=== PATIENT | male | born 1950 | race Caucasian/White ===

== ENCOUNTER 2020-02-28 23:50 | Observation (INO) | payer MEDICARE ==
[2020-02-29] MEDS ORDERED: SODIUM CHLORIDE 0.9% 1,000 ML IV ONE (00:14)
[2020-02-29] MEDS ORDERED: ONDANSETRON 4 MG/2 ML VIAL IVP STA (00:14)
[2020-02-29] MEDS ORDERED: MECLIZINE 12.5 MG TAB PO STA (00:14)
--- NOTE | 2020-02-29 00:34 | ED ---
General Adult HPI - General Chief complaint: Recheck/Abnormal Lab/Rx Stated complaint: High Blood Pressure Time Seen by Provider: 02/28/20 23:58 Source: patient, EMS Mode of arrival: EMS Limitations: no limitations - History of Present Illness Initial comments: Oleg is a 69-year-old male who presents the emergency today via private vehicle for evaluation of dizziness. Patient reports he was in his usual state of health throughout the day today. He denies any chest pain palpitations or headaches. Patient reports and he went to bed this evening upon laying down he had profound vertigo. This seemed to be worse when laying back. Didn't seem to be provoked by head turning, sitting up or standing. He is never experienced anything like this in the past. He denies any headache or vision changes. He denies any difficulty in speech swallowing. He denies any weakness in the extremities. - Related Data Allergies Allergy/AdvReac Type Severity Reaction Status Date / Time No Known Allergies Allergy Verified 02/28/20 23:57 Review of Systems ROS Statement: Those systems with pertinent positive or pertinent negative responses have been documented in the HPI. ROS Other: All systems not noted in ROS Statement are negative. Past Medical History Past Medical History: Hypertension History of Any Multi-Drug Resistant Organisms: None Reported Past Surgical History: Prostate Surgery Past Psychological History: No Psychological Hx Reported Smoking Status: Never smoker Past Alcohol Use History: None Reported Past Drug Use History: None Reported General Exam - General Exam Comments Initial Comments: Physical Exam GENERAL: Patient is well-developed and well-nourished. Patient is nontoxic and well- hydrated and is in no distress. HENT: Normocephalic, Atraumatic. EYES: PERRL, EOMI PULMONARY: Unlabored respirations. No audible rales rhonchi or wheezing was noted. CARDIOVASCULAR: There is a regular rate and rhythm without any murmurs gallops or rubs. ABDOMEN: Soft and nontender with normal bowel sounds. SKIN: Skin is clear with no lesions or rashes and otherwise unremarkable. : Deferred NEUROLOGIC: Patient is alert and oriented x3. Cranial nerves II through XII are grossly intact Normal finger-nose Moving all extremities spontaneously Horizontal nystagmus noted upon laying backwards, not provoked by turning the head left or right MUSCULOSKELETAL: Normal extremities with adequate strength and full range of motion. No lower extremity swelling or edema. No calf tenderness. PSYCHIATRIC: Normal psychiatric evaluation. Limitations: no limitations Course Vital Signs 02/28/20 02/29/20 23:52 01:00 Temperature 97.6 F Pulse Rate 75 75 Respiratory 18 18 Rate Blood Pressure 167/97 135/84 O2 Sat by Pulse 97 98 Oximetry EKG Findings - EKG Comments: EKG Findings:: EKG was obtained due to complaint of dizziness and an elderly gen tleman, EKG was obtained 2358, rate 74 rhythm is sinus there is a normal axis, there are normal intervals, W[place] 150, QRS 90, QTC is 435 there are no acute ST elevation or depressions no evidence of acute ischemia, infarction or arrhythmia. Medical Decision Making - Medical Decision Making Patient was seen and evaluated, history is obtained from the patient Physical exam concerning for a reproducible likely peripheral vertigo however given the patient's advanced age and hypertension labs and imaging will be obtained Patient was treated with meclizine and Zofran (Reevaluation patient reports he vomited after taking the meclizine not certain if he kept any of it down. He has persistent vertigo Head CT was reviewed and was unremarkable IV Valium was ordered for persistent vertigo Labs resulted with mild hypokalemia no other significant abnormalities Patient was reevaluated was found to be resting comfortably after IV Valium he reports resolution of his dizziness and nausea however given his advanced age I do feel the patient would benefit from evaluation by neurology. Patient is agreeable to plan for observation with a consult to neurology. - Lab Data Result diagrams: 02/29/20 01:07 02/29/20 01:07 Lab Results 02/29/20 02/29/20 Range/Units 01:07 01:07 WBC 5.1 (3.8-10.6) k/uL RBC 3.74 L (4.30-5.90) m/uL Hgb 11.5 L (13.0-17.5) gm/dL Hct 35.1 L (39.0-53.0) % MCV 93.8 (80.0-100.0) fL MCH 30.8 (25.0-35.0) pg MCHC 32.8 (31.0-37.0) g/dL RDW 12.5 (11.5-15.5) % Plt Count 155 (150-450) k/uL Neutrophils % 54 % Lymphocytes % 28 % Monocytes % 8 % Eosinophils % 6 % Basophils % 1 % Neutrophils # 2.8 (1.3-7.7) k/uL Lymphocytes # 1.4 (1.0-4.8) k/uL Monocytes # 0.4 (0-1.0) k/uL Eosinophils # 0.3 (0-0.7) k/uL Basophils # 0.0 (0-0.2) k/uL Sodium 135 L (137-145) mmol/L Potassium 3.3 L (3.5-5.1) mmol/L Chloride 108 H (98-107) mmol/L Carbon Dioxide 21 L (22-30) mmol/L Anion Gap 6 mmol/L BUN 16 (9-20) mg/dL Creatinine 0.66 (0.66-1.25) mg/dL Est GFR (CKD-EPI)AfAm >90 (>60 ml/min/1.73 sqM) Est GFR (CKD-EPI)NonAf >90 (>60 ml/min/1.73 sqM) Glucose 150 H (74-99) mg/dL Calcium 7.5 L (8.4-10.2) mg/dL Magnesium 1.6 (1.6-2.3) mg/dL Total Bilirubin 0.2 (0.2-1.3) mg/dL AST 18 (17-59) U/L ALT 10 (4-49) U/L Alkaline Phosphatase 59 (38-126) U/L Total Protein 5.5 L (6.3-8.2) g/dL Albumin 3.2 L (3.5-5.0) g/dL Disposition Clinical Impression: Vertigo, Hypertension, Hypokalemia Disposition: ADMITTED IP TO THIS HOSP Condition: Stable Referrals: Yoahn Sanderson MD [Primary Care Provider] - 1-2 days
--- NOTE | 2020-02-29 00:50 | CT ---
EXAMINATION TYPE: CT brain wo con DATE OF EXAM: 02/29/2020 COMPARISON: None HISTORY: dizziness , vomiting CT DLP: 1173.4 mGycm Automated exposure control for dose reduction was used. Images obtained of the brain with no contrast. There is mild cerebral atrophy. There is no mass effect nor midline shift. There is no sign of intrac ranial hemorrhage. The calvarium is intact. IMPRESSION: Mild atrophy. No acute intracranial abnormality.
[2020-02-29 01:21] LABS: Basophils % (A) 1 %; Eosinophils # (A) 0.3 k/uL (0-0.7); Eosinophils % (A) 6 %; HCT 35.1 % (39.0-53.0); HGB 11.5 gm/dL (13.0-17.5); Lymphocytes # (A) 1.4 k/uL (1.0-4.8); Lymphocytes % (A) 28 %; MCH 30.8 pg (25.0-35.0); MCHC 32.8 g/dL (31.0-37.0); MCV 93.8 fL (80.0-100.0); Mean Platelet Volume 8.4; Monocytes # (A) 0.4 k/uL (0-1.0); Monocytes % (A) 8 %; Neutrophils # (A) 2.8 k/uL (1.3-7.7); Neutrophils % (A) 54 %; Platelet Count 155 k/uL (150-450); RBC 3.74 m/uL (4.30-5.90); RDW 12.5 % (11.5-15.5); WBC 5.1 k/uL (3.8-10.6)
[2020-02-29 01:32] LABS: ALT 10 U/L (4-49); AST 18 U/L (17-59); African American GFR (CKD) >90 (>60 ml/min/1.73 sqM); Albumin 3.2 g/dL (3.5-5.0); Alkaline Phosphatase 59 U/L (38-126); Anion Gap 6 mmol/L; Blood Urea Nitrogen 16 mg/dL (9-20); Calcium 7.5 mg/dL (8.4-10.2); Carbon Dioxide 21 mmol/L (22-30); Chloride 108 mmol/L (98-107); Glucose 150 mg/dL (74-99); Magnesium 1.6 mg/dL (1.6-2.3); Non-African American GFR(CKD) >90 (>60 ml/min/1.73 sqM); Potassium 3.3 mmol/L (3.5-5.1); Sodium 135 mmol/L (137-145); Total Bilirubin 0.2 mg/dL (0.2-1.3); Total Protein 5.5 g/dL (6.3-8.2)
[2020-02-29] MEDS ORDERED: Potassium Replacement Protocol 1 EACH MISC MISCELLANE PRN (01:42)
[2020-02-29] MEDS ORDERED: DIAZEPAM 5 MG/ML 2 ML INJ IVP STA (01:57)
[2020-02-29] MEDS: POTASSIUM CHLORIDE ER 20 MEQ TAB.ER PO SCH ×2 (02:00→03:09)
[2020-02-29] MEDS ORDERED: NALOXONE 0.4 MG/ML 1 ML VIAL IV PRN (02:37)
[2020-02-29] MEDS ORDERED: 0.9% NACL WITH KCL 20 MEQ/L 1,000 ML IV SCH (02:45)
[2020-02-29 04:47] VITALS: BP 143/96
[2020-02-29 06:11] LABS: African American GFR (CKD) >90 (>60 ml/min/1.73 sqM); Anion Gap 5 mmol/L; Blood Urea Nitrogen 14 mg/dL (9-20); Calcium 8.9 mg/dL (8.4-10.2); Carbon Dioxide 27 mmol/L (22-30); Chloride 108 mmol/L (98-107); Glucose 114 mg/dL (74-99); Non-African American GFR(CKD) >90 (>60 ml/min/1.73 sqM); Potassium 4.7 mmol/L (3.5-5.1); Sodium 140 mmol/L (137-145)
[2020-02-29 06:27] LABS: Glucose,Whole Blood 112 mg/dL (75-99)
[2020-02-29 09:34] VITALS: PULSE 92; RESP 14; TEMP 97.9
--- NOTE | 2020-02-29 09:49 | P.CNNES ---
History of Present Illness Consult date: 02/29/20 Requesting physician: Marina Cormier Reason for Consult: persistent dizziness History of Present Illness: This is a 69-year-old right-handed gentleman medical history of hypertension, prostate cancer s/p resection (2006) that presented to the emergency department on evening of 02/28/2020 regarding dizziness. Patient reports date he was in his usual health throughout the day yesterday then went to bed yesterday at 10pm and upon laying down he was having dizziness. He felt the room was spining around him. The dizziness was with rest and resting. He did feel nausea. Denied diplopia, rining in the ears, hearing loss, focal weakness, slurred speech, vision change. He did not notice that he was swaying one side to another. He denied fever, cough or chills. Denies trauma to head or neck. In the ED he had an episode of vomitting and received meclizine and feels his dizziness is resolved. He denies history of TIA or stroke. Denied family history of stroke. Workup in the ED consisted of CT of the head which was reported as mild atrophy. Otherwise no acute intracranial abnormality. EKG was normal sinus rhythm, ventricle rate of 74. His initial blood pressure was 167/97. Heart rate was 75 bpm. initial temperature was 97.6 F. Of note the patient states that he has chronic headaches. He had he gives a poor description of the headache he states that it's in the back of the head or throughout his whole head. He denies any photophobia, phonophobia. Denies any nausea any vomiting. Could not characterize his headache. His headache was 3/10 if he gets it. Last headache was about 4 weeks ago. He is on a chronic dose of codeine twice a day and been on it for years. Review of Systems Review of system: The 12 point system was reviewed and apparent positive and negative per HPI. Past Medical History Past Medical History: Hypertension History of Any Multi-Drug Resistant Organisms: None Reported Past Surgical History: Prostate Surgery Past Psychological History: No Psychological Hx Reported Smoking Status: Never smoker Past Alcohol Use History: None Reported Past Drug Use History: None Reported Medications and Allergies Home Medications Medication Instructions Recorded Confirmed Type Aspirin/Acetaminophen/Caffeine 1 tab PO HS 02/29/20 02/29/20 History [Excedrin Extra Strength Caplet] Azelaic Acid 1 applic TOPICAL BID 02/29/20 02/29/20 History Calcium Carbonate [Tums] 500 - 1,000 mg PO TID PRN 02/29/20 02/29/20 History Famotidine 20 mg PO BID 02/29/20 02/29/20 History Fexofenadine HCl [Karina Allergy] 180 mg PO DAILY 02/29/20 02/29/20 History Ketoconazole 2% Cream [Nizoral 2%] 1 applic TOPICAL DAILY PRN 02/29/20 02/29/20 History Losartan [Cozaar] 50 mg PO DAILY 02/29/20 02/29/20 History Lycopene 10 mg PO DAILY 02/29/20 02/29/20 History Meclizine [Antivert] 12.5 mg PO Q12HR PRN #15 tablet 02/29/20 Rx Multivit-Min/FA/Lycopen/Lutein 1 tab PO DAILY 02/29/20 02/29/20 History [Centrum Silver Tablet] Nystatin/Triamcin 1 applic TOPICAL BID PRN 02/29/20 02/29/20 History [Nystatin-Triamcinolone Cream] Oxymetazoline HCl [Rhofade] 1 applic TOPICAL DAILY PRN 02/29/20 02/29/20 History Selenium 200 mcg PO DAILY 02/29/20 02/29/20 History Sennosides [Senna] 34.4 mg PO HS 02/29/20 02/29/20 History metroNIDAZOLE 1% GEL [Metrogel 1%] 1 applic TOPICAL HS 02/29/20 02/29/20 History Allergies Allergy/AdvReac Type Severity Reaction Status Date / Time No Known Allergies Allergy Verified 02/29/20 08:58 Physical Examination - Vital Signs Vital Signs: Vital Signs Temp Pulse Pulse Resp BP BP Pulse Ox 02/29/20 04:00 97.6 F 80 18 143/96 97 02/29/20 03:00 70 18 115/82 97 02/29/20 02:00 73 18 143/85 96 02/29/20 01:00 75 18 135/84 98 02/28/20 23:52 97.6 F 75 18 167/97 97 Intake and Output 02/28/20 02/29/20 02/29/20 22:59 06:59 14:59 Intake Total 150 Balance 150 Intake: Intake, IV Titration 150 Amount 0.9% NaCl with KCl 20 Meq 150 /l 1,000 ml @ 50 mls/hr IV .Q20H [facility] Rx#: [id number] Oral 0 Other: Voiding Method Toilet # Voids 4 Weight 68.946 kg GENERAL: The patient is lying in bed and is not in acute distress. CHEST: The heart rate is regular rate rhythm. No murmurs to auscultation. No carotid bruit bilaterally. LUNG: Clear to auscultation bilaterally no wheezing noted throughout. Not labored breathing. ABDOMEN/GI: Bowel sounds present in all 4 quadrants. No tenderness to palpation throughout. NEUROLOGICAL: Higher mental function: The patient is awake, alert, oriented to self, place and time. Patient is following commands. No aphasia and no neglect. Cranial nerves: The pupils are round, equal (3mm bilaterally) and reactive to light and accommodation. Visual renteria are full to confrontation throughout. Extraocular movement is intact no nystagmus is noted. Facial sensation is normal to touch throughout. The facial strength is normal throughout. Hearing is normal bilaterally to hand rub. Tongue is midline and moved [id number] without any difficulty. No dysarthria is noted. Shoulder shrug is normal b ilaterally. Motor: Gait is normal and he was not swaying towards one side or other. The strength is 5 over 5 throughout. Normal tone and bulk. Romberg sign was negative. Cerebellum: Normal finger to nose and heel to chin bilaterally. Sensation: Sensation is normal to touch throughout. Reflexes (right/left): 2+ throughout. Plantars are downgoing bilaterally. Results - Laboratory Findings CBC and BMP: 02/29/20 01:07 02/29/20 05:53 Abnormal Lab Findings: Abnormal Labs 02/29/20 02/29/20 02/29/20 01:07 01:07 05:53 RBC 3.74 L Hgb 11.5 L Hct 35.1 L Sodium 135 L Potassium 3.3 L Chloride 108 H 108 H Carbon Dioxide 21 L Glucose 150 H 114 H POC Glucose (mg/dL) Calcium 7.5 L Total Protein 5.5 L Albumin 3.2 L 02/29/20 06:26 RBC Hgb Hct Sodium Potassium Chloride Carbon Dioxide Glucose POC Glucose (mg/dL) 112 H Calcium Total Protein Albumin - Diagnostic Findings Additional findings: AST 18 ALT of 20 his initial calcium was 7.5 but repeated was 8.9. Initial sodium was 135 but repeated was 140. Initial potassium was 3.3 but he received potassium and is the repeated to potassium was 4.7. Assessment and Plan Assessment: This is a 69-year-old right-haneded gentleman with a history of hypertension, and prostate cancer s/p resection (2006) who presented to the ED on 02/28/2024 for dizziness. He felt room is spining around him and was with rest and laying. He had nausea and vomitting. Otherwise no other neurological complaints. Initial CT of the head that showed mild atrophy otherwise unremarkable. In ED he received meclizine and he feels his dizziness is resolved. Neurological exam is normal. Dizziness of unspecified etiology that resolved (possibly labyrinthitis) Chronic headache History of HTN Plan: Regarding the patient's dizziness which is resolved. There is a no neurological deficit. No further imaging it is warranted at this time. Meclizine is ordered, 12.5 mg, diazepam 5 mg once, Zofran 4 mg once. Can consider low dose of meclizine upon discharge. Patient was not notified if he has any further dizziness or any neurological symptoms to come to the ED immediately. Chronic headache: Patient is on a chronic dose of codeine twice a day and he been on it for years he followed up with a family physician. And and he he gives poor description of his headache. His headaches don't seem migrainous or tension. Patient was notified that the codeine can cause rebound headache and it's recommended that he follows up with that neurology as an outpatient regarding the management of headache. He hasn't had any headaches E according to him in the last 4 weeks. Regarding his history of hypertension we'll defer to the primary team. Thank you for the consultation Matthew Logan MD Neurohospitalist Time with Patient: Greater than 30
[2020-02-29 12:09] LABS: Glucose,Whole Blood 93 mg/dL (75-99)
--- NOTE | 2020-02-29 13:56 | P.HPIM ---
History of Present Illness H&P Date: 02/29/20 Chief Complaint: Dizziness Patient is a 69-year-old male with a known history of hypertension, tonic headaches, prostate cancer status post resection in 2017 presents to ER with complaints of dizziness. Patient says that he went to bed yesterday evening and laid down. Upon laying down he had profound O2 and felt like the room spinning. Seems to be worse when lying back. He never experienced anything like this in the past. Denied any worsening headache or visual changes. No complaints of chest pain or shortness of breath. No palpitations. Next and denied any wea kness or numbness or tingling sensation in the feet and hands. Denied any slurred speech. Denied any complaints of cough is from production. No fever no chills. No recent illnesses. Denied ear pain. Laboratory data showed sodium 133, potassium 3.3 No leukocytosis. Hemoglobin is 11.2 CT head showed mild atrophy. No intracranial abnormality noted. Blood pressure was 167/97 with heart rate 75 on admission. Patient was afebrile. Review of Systems Constitutional: Patient denies any fever or chills . No generalized weakness or weight loss. Abdomen: Patient denied nausea vomiting and diarrhea and abdominal pain. Cardiovascular: Patient denies any chest pain or short of breath no palpitations. Respiratory: patient denied any cough is from production. No shortness of breath Neurologic: Patient denied any numbness or tingling. Chronic headache. Dizziness and room spinning Musculoskeletal: Patient denies any complaints of joint swelling or deformity. Skin: Negative Psychiatric: Negative Endocrine: No heat or cold intolerance. No recent weight gain. Genitourinary: No dysuria or hematuria. All other 14 point ROS negative except the above Past Medical History Past Medical History: Hypertension History of Any Multi-Drug Resistant Organisms: None Reported Past Surgical History: Prostate Surgery Past Psychological History: No Psychological Hx Reported Smoking Status: Never smoker Past Alcohol Use History: None Reported Past Drug Use History: None Reported Medications and Allergies Home Medications Medication Instructions Recorded Confirmed Type Aspirin/Acetaminophen/Caffeine 1 tab PO HS 02/29/20 02/29/20 History [Excedrin Extra Strength Caplet] Azelaic Acid 1 applic TOPICAL BID 02/29/20 02/29/20 History Calcium Carbonate [Tums] 500 - 1,000 mg PO TID PRN 02/29/20 02/29/20 History Famotidine 20 mg PO BID 02/29/20 02/29/20 History Fexofenadine HCl [Karina Allergy] 180 mg PO DAILY 02/29/20 02/29/20 History Ketoconazole 2% Cream [Nizoral 2%] 1 applic TOPICAL DAILY PRN 02/29/20 02/29/20 History Losartan [Cozaar] 50 mg PO DAILY 02/29/20 02/29/20 History Lycopene 10 mg PO DAILY 02/29/20 02/29/20 History Meclizine [Antivert] 12.5 mg PO Q12HR PRN #15 tablet 02/29/20 Rx Multivit-Min/FA/Lycopen/Lutein 1 tab PO DAILY 02/29/20 02/29/20 History [Centrum Silver Tablet] Nystatin/Triamcin 1 applic TOPICAL BID PRN 02/29/20 02/29/20 History [Nystatin-Triamcinolone Cream] Oxymetazoline HCl [Rhofade] 1 applic TOPICAL DAILY PRN 02/29/20 02/29/20 History Selenium 200 mcg PO DAILY 02/29/20 02/29/20 History Sennosides [Senna] 34.4 mg PO HS 02/29/20 02/29/20 History metroNIDAZOLE 1% GEL [Metrogel 1%] 1 applic TOPICAL HS 02/29/20 02/29/20 History Allergies Allergy/AdvReac Type Severity Reaction Status Date / Time No Known Allergies Allergy Verified 02/29/20 08:58 Physical Exam Vitals: Vital Signs Temp Pulse Pulse Resp BP BP Pulse Ox 02/29/20 08:00 97.9 F 92 14 97 02/29/20 04:00 97.6 F 80 18 143/96 97 02/29/20 03:00 70 18 115/82 97 02/29/20 02:00 73 18 143/85 96 02/29/20 01:00 75 18 135/84 98 02/28/20 23:52 97.6 F 75 18 167/97 97 Intake and Output 02/28/20 02/29/20 02/29/20 22:59 06:59 14:59 Intake Total 150 Balance 150 Intake: Intake, IV Titration 150 Amount 0.9% NaCl with KCl 20 Meq 150 /l 1,000 ml @ 50 mls/hr IV .Q20H [facility] Rx#: [id number] Oral 0 Other: Voiding Method Toilet # Voids 4 Weight 68.946 kg PHYSICAL EXAMINATION: Patient is lying in the bed comfortably, no acute distress, awake alert and oriented.. HEENT: Normocephalic. Neck is supple. Pupils reactive. Nostrils clear. Oral cavity is moist. Ears reveal no drainage. Neck reveals no JVD, carotid bruits, or thyromegaly. CHEST EXAMINATION: Trachea is central. Symmetrical expansion. Lung renteria clear to auscultation and percussion. CARDIAC: Normal S1, S2 with no gallops. No murmurs ABDOMEN: Soft. Bowel sounds normal. No organomegaly. No abdominal bruits. Extremities: reveal no edema. No clubbing or cyanosis Neurologically awake, alert, oriented x3 with well-coordinated movements. No focal deficits noted Skin: No rash or skin lesions. Psychiatric: Coperative. Nonsuicidal Musculoskeletal: No joint swelling or deformity. Normal range of motion. Results CBC & Chem 7: 02/29/20 01:07 02/29/20 05:53 Labs: Abnormal Lab Results - Last 24 Hours (Table) 02/29/20 02/29/20 02/29/20 Range/Units 01:07 01:07 05:53 RBC 3.74 L (4.30-5.90) m/uL Hgb 11.5 L (13.0-17.5) gm/dL Hct 35.1 L (39.0-53.0) % Sodium 135 L (137-145) mmol/L Potassium 3.3 L (3.5-5.1) mmol/L Chloride 108 H 108 H (98-107) mmol/L Carbon Dioxide 21 L (22-30) mmol/L Glucose 150 H 114 H (74-99) mg/dL POC Glucose (mg/dL) (75-99) mg/dL Calcium 7.5 L (8.4-10.2) mg/dL Total Protein 5.5 L (6.3-8.2) g/dL Albumin 3.2 L (3.5-5.0) g/dL 02/29/20 Range/Units 06:26 RBC (4.30-5.90) m/uL Hgb (13.0-17.5) gm/dL Hct (39.0-53.0) % Sodium (137-145) mmol/L Potassium (3.5-5.1) mmol/L Chloride (98-107) mmol/L Carbon Dioxide (22-30) mmol/L Glucose (74-99) mg/dL POC Glucose (mg/dL) 112 H (75-99) mg/dL Calcium (8.4-10.2) mg/dL Total Protein (6.3-8.2) g/dL Albumin (3.5-5.0) g/dL Thrombosis Risk Factor Assmnt - DVT/VTE Prophylaxis DVT/VTE Prophylaxis: Pharmacologic Prophylaxis ordered - Choose All That Apply Any of the Below Risk Factors Present?: No Other Risk Factors: Yes Each Risk Factor Represents 2 Points: Age 61-74 years Other congenital or acquired thrombophilia - If yes, enter type in comment: No Thrombosis Risk Factor Assessment Total Risk Factor Score: 2 Thrombosis Risk Factor Assessment Level: Low Risk Assessment and Plan Assessment: TDizziness with feeling of room spinning likely due to positional vertigo and possible labyrinthitis. Chronic headaches. No new changes. Denied any history of migraine headache Hypertension. Controlled. Hypovolemic hyponatremia DVT prophylaxis Plan: Patient will be continued on IV hydration and replace electrolyte. Patient will be started on meclizine 12.5 mg 3 times a day when necessary for dizziness and vertigo. Patient does take Fioricet and Fiorinal for headaches at home. Neurology was consulted. Further recommendations based on the clinical course. Otherwise patient is improving symptomatically. Time with Patient: Greater than 30
--- NOTE | 2020-02-29 13:59 | P.DS ---
Providers Date of admission: 02/29/20 02:37 Expected date of discharge: 02/29/20 Attending physician: Vinay Cantrell Consults: 02/29/20 02:38 Consult Physician Urgent Consulting Provider: Matthew Logan Consult Reason/Comments: dizziness, normal head CT Do you want consulting provider notified?: Yes, Notify in am Primary care physician: Yohan Sanderson MD Hospital Course: Discharge diagnosis Dizziness with feeling of room spinning likely due to positional vertigo and possible labyrinthitis. Chronic headaches. No new changes. Denied any history of migraine headache Hypertension. Controlled. Hypovolemic hyponatremia DVT prophylaxis Hospital course Patient is a 69-year-old male with a known history of hypertension, tonic headaches, prostate cancer status post resection in 2017 presents to ER with complaints of dizziness. Patient says that he went to bed yesterday evening and laid down. Upon laying down he had profound O2 and felt like the room spinning. Seems to be worse when lying back. He never experienced anything like this in the past. Denied any worsening headache or visual changes. No complaints of chest pain or shortness of breath. No palpitations. Next and denied any weakness or numbness or tingling sensation in the feet and hands. Denied any slurred speech. Denied any complaints of cough is from production. No fever no chills. No recent illnesses. Denied ear pain. Laboratory data showed sodium 133, potassium 3.3 No leukocytosis. Hemoglobin is 11.2 CT head showed mild atrophy. No intracranial abnormality noted. Blood pressure was 167/97 with heart rate 75 on admission. Patient was afebrile. Patient was continued on IV hydration. Sodium level and potassium level was improved. Was started on meclizine as needed seems to improve his symptoms. Patient was seen by neurology and recommended outpatient workup including MRI of the symptoms does not get better. Patient did improve clinically with several management. Patient will be started back on blood pressure medications at home. Currently being discharged home and follow with primary care physician and referral to outpatient neurology clinic. Patient was advised not to take medication with codeine for his chronic headaches. Discharge physical examination was done. Vital Signs 02/29/20 08:00 Temperature 97.9 F Pulse Rate [ 92 Left Pulse Oximetery] Respiratory 14 Rate O2 Sat by Pulse 97 Oximetry Patient Condition at Discharge: Stable Plan - Discharge Summary Discharge Rx Participant: No New Discharge Prescriptions: New Meclizine [Antivert] 12.5 mg PO Q12HR PRN #15 tablet PRN Reason: Vertigo Continue Famotidine 20 mg PO BID Calcium Carbonate [Tums] 500 - 1,000 mg PO TID PRN PRN Reason: Heartburn Sennosides [Senna] 34.4 mg PO HS Multivit-Min/FA/Lycopen/Lutein [Centrum Silver Tablet] 1 tab PO DAILY Fexofenadine HCl [Karina Allergy] 180 mg PO DAILY Selenium 200 mcg PO DAILY Lycopene 10 mg PO DAILY Aspirin/Acetaminophen/Caffeine [Excedrin Extra Strength Caplet] 1 tab PO HS Nystatin/Triamcin [Nystatin-Triamcinolone Cream] 1 applic TOPICAL BID PRN PRN Reason: Skin Irritation Ketoconazole 2% Cream [Nizoral 2%] 1 applic TOPICAL DAILY PRN PRN Reason: Skin Irritation Oxymetazoline HCl [Rhofade] 1 applic TOPICAL DAILY PRN PRN Reason: ROSACEA metroNIDAZOLE 1% GEL [Metrogel 1%] 1 applic TOPICAL HS Losartan [Cozaar] 50 mg PO DAILY Azelaic Acid 1 applic TOPICAL BID Discontinued [id number]-Tslmyjm-Codeine [Fiorinal w/Cod 77-677-00-30MG] 1 cap PO BID@1000,1600 Discharge Medication List Aspirin/Acetaminophen/Caffeine [Excedrin Extra Strength Caplet] 1 tab PO HS 02/29/20 [History] Azelaic Acid 1 applic TOPICAL BID 02/29/20 [History] Calcium Carbonate [Tums] 500 - 1,000 mg PO TID PRN 02/29/20 [History] Famotidine 20 mg PO BID 02/29/20 [History] Fexofenadine HCl [Karina Allergy] 180 mg PO DAILY 02/29/20 [History] Ketoconazole 2% Cream [Nizoral 2%] 1 applic TOPICAL DAILY PRN 02/29/20 [History] Losartan [Cozaar] 50 mg PO DAILY 02/29/20 [History] Lycopene 10 mg PO DAILY 02/29/20 [History] Meclizine [Antivert] 12.5 mg PO Q12HR PRN #15 tablet 02/29/20 [Rx] Multivit-Min/FA/Lycopen/Lutein [Centrum Silver Tablet] 1 tab PO DAILY 02/29/20 [History] Nystatin/Triamcin [Nystatin-Triamcinolone Cream] 1 applic TOPICAL BID PRN 02/29/20 [History] Oxymetazoline HCl [Rhofade] 1 applic TOPICAL DAILY PRN 02/29/20 [History] Selenium 200 mcg PO DAILY 02/29/20 [History] Sennosides [Senna] 34.4 mg PO HS 02/29/20 [History] metroNIDAZOLE 1% GEL [Metrogel 1%] 1 applic TOPICAL HS 02/29/20 [History] Follow up Appointment(s)/Referral(s): Yohan Sanderson MD [Primary Care Provider] - 1-2 days Activity/Diet/Wound Care/Special Instructions: Dr. Sanderson office will call patient to set up follow up appointment. Discharge Disposition: HOME SELF-CARE
== END 2020-02-29 13:09 | disposition home or self-care (01) ==
LOC: EC 23:50 → 1SOBS 02-29 02:37
PROVIDERS: ADMIT Hospitalist; ATTEND Hospitalist
DX: R42 Dizziness and giddiness (principal); I10 Essential (primary) hypertension; E87.6 Hypokalemia; G44.89 Other headache syndrome; E86.1 Hypovolemia; E87.1 Hypo-osmolality and hyponatremia; Z79.82 Long term (current) use of aspirin; Z85.46 Personal history of malignant neoplasm of prostate; Z90.79 Acquired absence of other genital organ(s); Z79.899 Other long term (current) drug therapy; Z79.891 Long term (current) use of opiate analgesic
CPT/HCPCS: 96361; 96374; 96375; 99285; 36415; 93005; 80053; 83735; 85025; 70450; G0378; U0003; J3360; J2405; 80048

== ENCOUNTER → 2024-12-15 | Outpatient (CLI) | payer MEDICARE ==
--- NOTE | 2024-12-15 15:46 | MR ---
INDICATION: Patient age:Male; 74 years old; Reason for study: I67.9 CVA; [facility]. COMPARISON: CT brain 02/29/2020. TECHNIQUE: Multi planar, multi sequence imaging was performed through the brain without the administr ation of intravenous contrast. FINDINGS: The alicea-white junctions, ventricular system, basal cisterns appear unremarkable. Age-appropriate dif fuse cerebral volume loss. Diffusion-weighted imaging shows no evidence of restricted diffusion to ordaz ggest acute/subacute infarct. Intracranial arterial flow voids are maintained. Midline structures kerline w no abnormality. Patchy and confluent areas of high T2/FLAIR signal intensity are seen within the pe riventricular and subcortical white matter. Example includes a left frontal lobe subcortical white ma tter lesion measuring up to 7 mm (series 601, image 24). The susceptibility weighted images do not re veal any evidence for micro-hemorrhage. The bone marrow signal is within normal limits. The globes are unremarkable. Mild mucosal thickening of the ethmoid sinuses. IMPRESSION: 1. No evidence of intracranial mass or acute/subacute infarct. 2. Nonspecific moderate white matter changes, likely related to small vessel ischemic disease versus other etiologies. [facility], , 12/15/2024 3:43 PM
== END | disposition home or self-care (01) ==
LOC: RADMRIMAIN 14:23
PROVIDERS: ATTEND Psychiatry & Neurology Neurology
DX: I67.9 Cerebrovascular disease, unspecified (principal); R90.82 White matter disease, unspecified
CPT/HCPCS: 70551